=== PATIENT | male | born 1995 | race Asian ===

== ENCOUNTER 2020-08-19 11:04 | Emergency (ER) | payer OTHER ==
[~2020-08-19] VITALS: Ht 160 cm; Wt 61.4 kg
[2020-08-19] MEDS ORDERED: PERTUSS(ACELL),DIPH,TET VAC/PF 0.5 ML SYRINGE IM. ONE (11:45)
[2020-08-19] MEDS ORDERED: CEPHALEXIN MONOHYDRATE 500 MG CAPSULE PO ONE (11:45)
[2020-08-19 12:11] VITALS: BP 123/87
== END 2020-08-19 12:11 | disposition home or self-care (01) ==
LOC: EMS 11:13
DX: S60.562A Insect bite (nonvenomous) of left hand, initial encounter (principal); L03.114 Cellulitis of left upper limb; W57.XXXA Bitten or stung by nonvenomous insect and other nonvenomous arthropods, initial encounter; Y93.89 Activity, other specified; Y92.89 Other specified places as the place of occurrence of the external cause; Y99.8 Other external cause status
CPT/HCPCS: 90715; 99283

== ENCOUNTER 2020-09-09 16:27 | Emergency (ER) | payer OTHER ==
[~2020-09-09] VITALS: Ht 157.5 cm; Wt 61.4 kg
[2020-09-09 17:17] VITALS: BP 150/91
[2020-09-09] MEDS ORDERED: DiphenhydrAMINE HCL 25 MG CAPSULE PO ONE (17:30)
== END 2020-09-09 17:37 | disposition home or self-care (01) ==
LOC: EMS 16:27
DX: L50.9 Urticaria, unspecified (principal)
CPT/HCPCS: 99282; 99283